=== PATIENT | female | born 1950 | race Caucasian/White ===

== ENCOUNTER 2017-05-09 14:59 | Emergency (ER) | payer MEDICARE, MEDICAID ==
[2017-05-09 14:59] VITALS: BMI 37.7
[2017-05-09 15:07] VITALS: TEMP 98.2; O2SAT 99
[2017-05-09] MEDS ORDERED: Albuterol-Ipratrop 3 mg / 0.5 (3 ml) UD IH STA (15:24)
--- NOTE | 2017-05-09 15:24 | C.PDOC ---
History Of Present Illness 67 year old female presents to the ED for evaluation of shortness of breath. Patient notes that she had a cold 4-5 weeks ago. Today began having shortness of breath, both at rest and with exertion. She endorses chest tightness, congestion, and wheezing. She denies fever or cough. No history of asthma or COPD. Time Seen by Provider: 05/09/17 15:11 Chief Complaint (Nursing): Shortness Of Breath History Per: Patient History/Exam Limitations: no limitations Current Symptoms Are (Timing): Still Present Associated Symptoms: denies: Fever, Cough Past Medical History Reviewed: Historical Data, Nursing Documentation, Vital Signs Vital Signs: Last Vital Signs Temp 98.2 F 05/09/17 15:05 Pulse 63 05/09/17 17:56 Resp 20 05/09/17 17:56 BP 135/75 05/09/17 17:56 Pulse Ox 99 05/09/17 18:01 - Medical History PMH: Arthritis, HTN, Hypercholesterolemia Denies: Asthma Family History: States: Unknown Family Hx - Social History Hx Tobacco Use: No Hx Alcohol Use: No Hx Substance Use: No - Immunization History Hx Tetanus Toxoid Vaccination: No Hx Influenza Vaccination: Yes Hx Pneumococcal Vaccination: No Physical Exam - Physical Exam Appears: Non-toxic, No Acute Distress Skin: Normal Color, Warm, Dry Head: Atraumatic, Normacephalic Eye(s): bilateral: Normal Inspection, PERRL, EOMI Oral Mucosa: Moist Respiratory: Normal Breath Sounds, No Rales, No Rhonchi, No Wheezing, Other ( Speaking in full sentences) Extremity: Normal ROM, No Pedal Edema, No Deformity Neurological/Psych: Oriented x3, Normal Speech ED Course And Treatment - Laboratory Results Result Diagrams: 05/09/17 17:11 05/09/17 17:11 ECG: Interpreted By Me, Viewed By Me ECG Rhythm: Sinus Rhythm Interpretation Of ECG: T-wave inversions in leads I, aVL, V2, and V6, EKG unchanged from prior on December 2015 Rate From EC O2 Sat by Pulse Oximetry: 99 (on room air) - Radiology CXR: Interpreted by Me, Viewed By Me, Read By Radiologist CXR Interpretation: Yes: No Acute Disease Progress - Re-Evaluation Re-evaluation Note: 05/09/17 16:23 SP NEB . CO MILD IMPROVE. PERSIST SOB. VSS LABS PENDING 05/09/17 18:00 NARD VSS FEELS BETTER - Data Reviewed Data Reviewed: Lab, Diagnostic imaging, EKG, Old records Disposition Counseled Patient/Family Regarding: Studies Performed, Diagnosis, Need For Followup, Rx Given - Disposition Referrals: [facility] [Outside] [facility] [Outside] Disposition: HOME/ ROUTINE Disposition Time: 18:00 Condition: IMPROVED Prescriptions: Albuterol HFA [Ventolin HFA 90 mcg/actuation (8 g)] 1 puff IH Q4 #1 inhaler Benzonatate [Tessalon Perles] 200 mg PO TID PRN #15 sgl PRN Reason: Cough Instructions: Acute Bronchitis (ED) Forms: 422 Group (Yoruba) - Clinical Impression Clinical Impression: Bronchitis - Scribe Statement The provider has reviewed the documentation as recorded by the Salome Hernandez Provider Attestation: All medical record entries made by the Radhaibe were at my direction and personally dictated by me. I have reviewed the chart and agree that the record accurately reflects my personal performance of the history, physical exam, medical decision making, and the department course for this patient. I have also personally directed, reviewed, and agree with the discharge instructions and disposition.
[2017-05-09] MEDS ORDERED: Albuterol-Ipratrop 3 mg / 0.5 (3 ml) UD ONE (15:36)
[2017-05-09] MEDS ORDERED: Sodium Chloride 0.9% 1,000 ML IV ONE (16:22)
[2017-05-09 17:14] LABS: BASO # 0.1 K/uL (0.0-0.2); BASO % 0.7 % (0.0-2.0); EOS # 0.6 K/uL (0.0-0.7); EOS % 5.8 % (0.0-4.0); HEMATOCRIT 41.6 % (34.0-47.0); LYMPH # 4.9 K/uL (1.0-4.3); MEAN CELL VOLUME 79.1 fL (81.0-99.0); MEAN CORPUSCULAR HEMOGLOBIN 25.6 pg (27.0-31.0); MEAN CORPUSCULAR HGB CONC 32.3 g/dL (33.0-37.0); MONO # 0.8 K/uL (0.0-0.8); MONO % 7.7 % (0.0-10.0); RED CELL DISTRIBUTION WIDTH 14.8 % (11.5-14.5); WHITE BLOOD COUNT 10.9 K/uL (4.8-10.8)
[2017-05-09 17:23] LABS: CHLORIDE 102 mmol/L (98-107)
[2017-05-09 17:24] LABS: POTASSIUM 3.8 mmol/L (3.6-5.2); SODIUM 139 mmol/L (132-148)
[2017-05-09 17:26] LABS: ALB/GLOB RATIO 0.9 (1.0-2.1); ALKALINE PHOSPHATASE 123 U/L (38-126); ALT/SGPT 41 U/L (9-52); AST/SGOT 24 U/L (14-36); BILIRUBIN,TOTAL 0.4 mg/dL (0.2-1.3); BLOOD UREA NITROGEN 18 mg/dL (7-17); CARBON DIOXIDE 26 mmol/L (22-30); GFR AFRICAN-AMERICAN > 60; TOTAL PROTEIN 8.7 g/dL (6.3-8.3)
[2017-05-09 17:27] LABS: GLUCOSE,RANDOM 108 mg/dL (65-105)
[2017-05-09 17:57] VITALS: BP 135/75; PULSE 63; RESP 20
[2017-05-09] MEDS ORDERED: Sodium Chloride 0.9% 1,000 ML ONE (18:11)
--- NOTE | 2017-05-09 18:43 | RAD ---
HISTORY: COUGH COMPARISON: Comparison is made to 09/08/2015 TECHNIQUE: Chest PA and lateral FINDINGS: LUNGS: Questionable small infiltrate at the left lower lobe/retrocardiac region. Otherwise no evidence of new infiltrate or consolidation in the lungs. PLEURA: No significant pleural effusion identified. No pneumothorax apparent. CARDIOVASCULAR: Normal. OSSEOUS STRUCTURES: No significant abnormalities. VISUALIZED UPPER ABDOMEN: Normal. OTHER FINDINGS: None. IMPRESSION: Questionable small infiltrate at the left lower lobe. Otherwise no interval change
--- NOTE | 2017-05-11 12:49 | CARD ---
APPROVED REPORT EKG Measurement Heart [id number] <Conclusion> Normal sinus rhythm Cannot rule out Anterior infarct, age undetermined Abnormal ECG
== END 2017-05-09 18:37 | disposition home or self-care (01) ==
LOC: C.ER 14:59
DX: J40 Bronchitis, not specified as acute or chronic (principal)
CPT/HCPCS: 71020; 80053; 83880; 84484; 85025; 93005; 94150; 94640; 96360; 99284; J7040

== ENCOUNTER 2017-10-12 07:58 | Day surgery (SDC) | payer MEDICARE, OTHER ==
[2017-07-14 08:49] VITALS: BMI 37.7
[2017-10-12] MEDS ORDERED: Propofol 10 mg/ml Inj (20 ML) ONE (09:46)
[2017-10-12 10:35] VITALS: TEMP 97.5
[2017-10-12 10:36] VITALS: O2SAT 100
[2017-10-12 11:07] VITALS: RESP 18
[2017-10-12 11:14] VITALS: BP 114/71; PULSE 70
== END 2017-10-12 11:08 | disposition home or self-care (01) ==
LOC: C.ENDO 07:58
PROVIDERS: ATTEND Internal Medicine
DX: D12.3 Benign neoplasm of transverse colon (principal); K21.9 Gastro-esophageal reflux disease without esophagitis; D12.5 Benign neoplasm of sigmoid colon; K29.70 Gastritis, unspecified, without bleeding
CPT/HCPCS: 43239; 45385; 82948; 88305; 88342; J2001; J2704; J3010